=== PATIENT | female | born 1965 | race Caucasian/White ===

== ENCOUNTER 2016-12-25 08:43 | Emergency (ER) | payer BC, OTHER ==
[2016-12-25 09:36] LABS: ABSOLUTE MONOCYTES (AUTO) 0.2 10^3/uL (0.1-1.4); BASOPHILS % (AUTO) 0.3 % (0-2); EOSINOPHILS % (AUTO) 0.2 % (0-6); HEMATOCRIT 43.7 % (36.0-47.0); HEMOGLOBIN 15.2 g/dL (12.0-15.5); HGB HCT DIFFERENCE 1.9; LYMPHOCYTES % (AUTO) 16.6 % (13-45); MEAN CORPUSCULAR HEMOGLOBIN 35.1 pg (27.0-33.4); MEAN CORPUSCULAR HGB CONC 34.8 g/dL (32.0-36.0); MEAN CORPUSCULAR VOLUME 101 fl (80-97); MONOCYTES % (AUTO) 3.2 % (3-13); RED BLOOD COUNT 4.34 10^6/uL (3.72-5.28); RED CELL DISTRIBUTION WIDTH 18.3 % (11.5-14.0); SEGMENTED NEUTROPHILS % (AUTO) 79.7 % (42-78); WHITE BLOOD COUNT 6.2 10^3/uL (4.0-10.5)
[2016-12-25 09:57] LABS: ALBUMIN 4.6 g/dL (3.5-5.0); ALKALINE PHOSPHATASE 134 U/L (38-126); ANION GAP 11 (5-19); BILIRUBIN,TOTAL 1.5 mg/dL (0.2-1.3); BLOOD UREA NITROGEN 6 mg/dL (7-20); CALCIUM 9.5 mg/dL (8.4-10.2); CARBON DIOXIDE 28 mmol/L (22-30); CHLORIDE 95 mmol/L (98-107); CREATINE KINASE 134 U/L (30-135); CREATININE RESULT 0.66 mg/dL (0.52-1.25); GLUCOSE 132 mg/dL (75-110); POTASSIUM 4.1 mmol/L (3.6-5.0); SODIUM 133.5 mmol/L (137-145); TOTAL PROTEIN 6.8 g/dL (6.3-8.2)
[2016-12-25 10:11] LABS: CREATINE KINASE MB 0.46 ng/mL (<4.55)
[2016-12-25 10:13] LABS: ALANINE AMINOTRANSFERASE 1922 U/L (9-52); TROPONIN I < 0.012 ng/mL
[2016-12-25 10:40] LABS: ASPARTATE AMINO TRANSFERASE 9972 U/L (14-36)
[2016-12-25 11:31] LABS: APPEARANCE,URINE CLOUDY; BILIRUBIN,URINE SMALL (NEGATIVE); GLUCOSE, URINE NEGATIVE (NEGATIVE); KETONES,URINE NEGATIVE (NEGATIVE); LEUKOCYTE ESTERASE,URINE MODERATE (NEGATIVE); NITRITE,URINE NEGATIVE (NEGATIVE); PROTEIN,URINE 100 mg/dL (NEGATIVE); URINE SPECIFIC GRAVITY 1.031; UROBILINOGEN,URINE NEGATIVE mg/dL (<2.0)
[2016-12-25] MEDS ORDERED: MAG HYDROX/AL HYDROX/SIMETH SUSP 30 ML UDCUP PO ONE (11:31)
[2016-12-25] MEDS ORDERED: LIDOCAINE 2% VISCOUS SOLN 20 ML UDCUP PO ONE (11:31)
[2016-12-25] MEDS ORDERED: METOCLOPRAMIDE HCL ORAL SOLN 10 MG/10 ML UDCUP PO ONE (11:31)
[2016-12-25] MEDS ORDERED: IPRATROPIUM/ALBUTEROL 0.5-2.5 MG/3 ML AMPUL NEB ONE (11:31)
[2016-12-25] MEDS ORDERED: PREDNISONE 20 MG TABLET PO ONE (11:31)
[2016-12-25 11:48] LABS: PROTHROMBIN TIME 15.7 SEC (11.4-15.4)
--- NOTE | 2016-12-25 12:14 | ER Document Report ---
ED General - General Chief Complaint: Cough Stated Complaint: BREATHING CONCERNS TRAVEL OUTSIDE OF THE [place] IN LAST 30 DAYS: No - HPI Patient complains to provider of: cough shortness of breath Notes: Patient with a history of COPD cough visiting from [place] was told to come to the ER for evaluation before she left to go back home to [place] on airplane. Patient otherwise also states she has a liver disease for which she is seeing a GI specialist at [facility]. Patient otherwise has no other complaints concerned she may have recurring pneumonia denies night sweats chills. Patient states was admitted to the hospital in [place] at the beginning of the year. - Related Data Allergies/Adverse Reactions: No Known Allergies Allergy (Verified 12/25/16 08:56) Past Medical History - Social History Smoking Status: Current Every Day Smoker Chew tobacco use (# tins/day): Yes Family History: Reviewed & Not Pertinent Patient has suicidal ideation: No Patient has homicidal ideation: No Renal/ Medical History: Denies: Hx Peritoneal Dialysis Review of Systems - Review of Systems Respiratory: Cough, Short of breath -: Yes All other systems reviewed and negative Physical Exam - Vital signs Vitals: Temp Pulse Resp BP Pulse Ox 98.0 F 96 20 137/80 H 97 12/25/16 08:52 12/25/16 08:52 12/25/16 08:52 12/25/16 08:52 12/25/16 08:52 Interpretation: Normal - General General appearance: Appears well, Alert - HEENT Head: Normocephalic, Atraumatic Eyes: Normal Pupils: PERRL - Respiratory Respiratory status: No respiratory distress Chest status: Nontender Breath sounds: Wheezing Chest palpation: Normal - Cardiovascular Rhythm: Regular Heart sounds: Normal auscultation Murmur: No - Abdominal Inspection: Normal Distension: No distension Bowel sounds: Normal Tenderness: Nontender Organomegaly: No organomegaly - Back Back: Normal, Nontender - Extremities General upper extremity: Normal inspection, Nontender, Normal color, Normal ROM , Normal temperature General lower extremity: Normal inspection, Nontender, Normal color, Normal ROM , Normal temperature, Normal weight bearing. No: Hansa's sign - Neurological Neuro grossly intact: Yes Cognition: Normal Orientation: AAOx4 Shirley Coma Scale Eye Opening: Spontaneous Estephania Coma Scale Verbal: Oriented Shirley Coma Scale Motor: Obeys Commands Estephania Coma Scale Total: 15 Speech: Normal Motor strength normal: LUE, RUE, LLE, RLE Sensory: Normal - Psychological Associated symptoms: Normal affect, Normal mood - Skin Skin Temperature: Warm Skin Moisture: Dry Skin Color: Normal Course - Re-evaluation Re-evalutation: 12/25/16 20:49 Patient with a history of COPD. Patient's lab work shows highly elevated LFTs. Patient states this is normal for her. I did attempt to try to contact her hospital in [facility] however no phone calls back after some type. Time waiting patient's vital signs remained normal patient stated that she would like to leave. At this time I see no critical etiologies of her liver studies. Patient was encouraged follow-up with her primary care physician no chest pain no hypoxia no signs of PE. Patient will be discharged - Vital Signs Vital signs: Temp Pulse Resp BP Pulse Ox 98.0 F 90 18 135/80 H 100 12/25/16 12:23 12/25/16 12:23 12/25/16 12:23 12/25/16 12:23 12/25/16 12:23 - Laboratory Result Diagrams: 12/25/16 09:24 12/25/16 09:24 Laboratory results interpreted by me: 12/25/16 12/25/16 12/25/16 09:24 09:24 09:24 MCV 101 H MCH 35.1 H RDW 18.3 H Seg Neutrophils % 79.7 H PT 15.7 H APTT 37.0 H Sodium 133.5 L Chloride 95 L BUN 6 L Glucose 132 H Total Bilirubin 1.5 H AST 9972 H ALT 1922 H Alkaline Phosphatase 134 H Urine Protein Urine Bilirubin Ur Leukocyte Esterase Urine Ascorbic Acid 12/25/16 11:12 MCV MCH RDW Seg Neutrophils % PT APTT Sodium Chloride BUN Glucose Total Bilirubin AST ALT Alkaline Phosphatase Urine Protein 100 H Urine Bilirubin SMALL H Ur Leukocyte Esterase MODERATE H Urine Ascorbic Acid 20 H Discharge - Discharge Clinical Impression: Bronchitis Condition: Good Disposition: HOME, SELF-CARE Instructions: Bronchitis With Bronchospasm (Wheezing) ([facility]), Liver Function Abnormality ([facility]) Additional Instructions: Your evaluation days consistent with bronchitis. 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 I would highly recommend to stop smoking. Continue your bronchodilators 2 puffs or 1 treatment every 4 hours for the next [address] you on a steroid taper. You may fly on an airplane travel. Patient to follow-up with your primary care physician and specialists for your elevation in your liver enzymes. Prescriptions: Prednisone [Deltasone 20 mg Tablet] 3 tab PO DAILY #18 tablet Forms: Smoking Cessation Education, Return to Work
[2016-12-25 12:24] VITALS: BP 135/80
--- NOTE | 2016-12-25 13:22 | EKG REPORT ---
SEVERITY:- BORDERLINE ECG - SINUS RHYTHM BORDERLINE T WAVE ABNORMALITIES : Confirmed by: Albino Fall MD 25-Dec-2016 13:22:10
== END 2016-12-25 12:24 | disposition home or self-care (01) ==
LOC: ER 08:43
DX: J40 Bronchitis, not specified as acute or chronic (principal); R05 Cough; R06.02 Shortness of breath; F17.210 Nicotine dependence, cigarettes, uncomplicated
CPT/HCPCS: 93005; 94640; 99284; 36415; 82553; 82550; 80307; 85025; 85610; 85730; 80053; 81001; 84484; 71020; 93010; J3490; J7512; J7620